=== PATIENT | male | born 1990 | race Caucasian/White ===

== ENCOUNTER 2016-12-28 23:28 | Emergency (ER) | payer OTHER ==
[2016-12-29 00:08] VITALS: BP 122/70
[2016-12-29] MEDS ORDERED: OXYCODONE-ACETAMINOPHEN 5-325 MG TABLET PO ONE (02:47)
[2016-12-29] MEDS ORDERED: NAPROXEN 250 MG TABLET PO ONE (02:47)
[2016-12-29] MEDS ORDERED: HYDROCODONE/ACETAMINOPHEN 5-325 MG 6 TAB/DSPK PO PRN (02:47)
--- NOTE | 2016-12-29 02:53 | ER Document Report ---
ED Extremity Problem, Lower - General Chief Complaint: Knee Pain Stated Complaint: KNEE PAIN Time Seen by Provider: 12/29/16 02:35 Mode of Arrival: Ambulatory Information source: Patient Notes: This 26-year-old male patient comes in her trunk complaining of right knee pain. He was playing soccer outdoors with his friend's children when his right knee began to feel irritated. It seemed to get progressively worse over the next several hours. There is no particular injury. He reports it is quite painful to try to walk. He does report a right knee injury in the past. TRAVEL OUTSIDE OF THE [place] IN LAST 30 DAYS: No - Related Data Allergies/Adverse Reactions: No Known Allergies Allergy (Verified 12/29/16 00:03) Home Medications: Current Home Medications No Home Medications 12/29/16 [History] Past Medical History - General Information source: Patient - Social History Smoking Status: Current Every Day Smoker Cigarette use (# per day): Yes - 1 PPD Chew tobacco use (# tins/day): No Smoking Education Provided: No Frequency of alcohol use: Occasional Drug Abuse: None Occupation: construction Lives with: Parents Family History: Reviewed & Not Pertinent Patient has suicidal ideation: No Patient has homicidal ideation: No - Past Medical History Cardiac Medical History: Reports: None Pulmonary Medical History: Reports: None EENT Medical History: Reports: None Neurological Medical History: Reports: None Endocrine Medical History: Reports: None Renal/ Medical History: Reports: None GI Medical History: Reports: Hx Crohn's Disease Musculoskeltal Medical History: Reports None Skin Medical History: Reports None Psychiatric Medical History: Reports: None Surgical Hx: Negative Review of Systems - Review of Systems Constitutional: No symptoms reported EENT: No symptoms reported Cardiovascular: No symptoms reported Respiratory: No symptoms reported Gastrointestinal: No symptoms reported Genitourinary: No symptoms reported Musculoskeletal: No symptoms reported Skin: No symptoms reported Hematologic/Lymphatic: No symptoms reported Neurological/Psychological: No symptoms reported Physical Exam - Vital signs Vitals: Temp Pulse Resp BP Pulse Ox 98.3 F 93 16 122/70 98 12/29/16 00:03 12/29/16 00:03 12/29/16 00:03 12/29/16 00:03 12/29/16 00:03 Interpretation: Normal - General General appearance: Appears well, Alert In distress: None - HEENT Head: Normocephalic, Atraumatic Eyes: Normal Pupils: PERRL - Respiratory Respiratory status: No respiratory distress - Cardiovascular Rhythm: Regular - Abdominal Inspection: Normal - Back Back: Normal - Extremities General upper extremity: Normal inspection General lower extremity: Other - Right knee has nontender collateral ligaments, no swelling. Patellofemoral grinding is quite painful and there is palpable crepitance. - Neurological Neuro grossly intact: Yes - Psychological Associated symptoms: Normal affect, Normal mood - Skin Skin Temperature: Warm Skin Moisture: Dry Skin Color: Normal Course - Vital Signs Vital signs: Temp Pulse Resp BP Pulse Ox 98.3 F 93 16 122/70 98 12/29/16 00:03 12/29/16 00:03 12/29/16 00:03 12/29/16 00:03 12/29/16 00:03 Discharge - Discharge Clinical Impression: Right anterior knee pain, Chondromalacia patellae of right knee Condition: Stable Disposition: HOME, SELF-CARE Additional Instructions: Chondromalacia: Your knee pain is probably due to cartilage irritation under the knee cap. This is called chondromalacia. It occurs when the knee cap isn't lined up perfectly on the joint. The cartilage on the back of the knee cap rubs on the bone. Climbing stairs and rising from a chair often cause pain. Chondromalacia is most common in young and active people. Treat the pain with ice packs and anti-inflammatory pain medicine. Avoid activities that make the pain worse. Isometric exercises to strengthen the quadriceps (thigh) muscle may help prevent further episodes. (Deep-knee bends and "quad machine" weight-lifting tend to make it worse.) In some cases, shoe inserts to correct imbalances in the legs or feet may be prescribed. Support for the knee cap with a light brace may also be helpful. Return if the knee becomes more swollen and painful, or if the symptoms aren't improving with time. TAKE 2 ALEVE EVERY 12 HOURS. USE ICE-PACKS TODAY. USE CRUTCHES. AVOID BENDING THE KNEE. LIMIT WEIGHT BEARING. FOLLOWUP WITH AN ORTHOPEDIC OR SPORTS MEDICINE DOCTOR WHEN YOU RETURN HOME.
== END 2016-12-29 03:15 | disposition home or self-care (01) ==
LOC: ER 23:28
DX: M25.561 Pain in right knee (principal); M22.41 Chondromalacia patellae, right knee; F17.210 Nicotine dependence, cigarettes, uncomplicated
CPT/HCPCS: 99283